=== PATIENT | female | born 1960 | race Caucasian/White ===

== ENCOUNTER 2018-02-09 05:40 | Day surgery (SDC) | payer BC ==
[2018-02-08 11:36] LABS: BASOPHILS 0.6 % (0-2); EOSINOPHILS 0 % (0-7); HEMOGLOBIN 14.6 g/dL (12-16); IMMATURE GRANULOCYTES 0.1 % (0-5); LYMPHOCYTES 29.2 % (15-50); MCH 31.3 pg (26.0-34.0); MCHC 34.8 g/dL (31.0-37.0); MCV 90.1 fL (80.0-100.0); MEAN PLATELET VOLUME 8.8 fL (7.4-10.4); MONOCYTES 5.2 % (2-11); NEUTROPHILS 64.9 % (40-80); PLATELET COUNT 265 10x3/uL (130-400); RBC 4.66 10x6/uL (4.00-5.40); RDW 14.1 % (11.5-14.5); WBC 7.2 10x3/uL (4.8-10.8)
[2018-02-08 11:55] LABS: CALC OSMOLALITY 280 mosm/kg (275-300); CARBON DIOXIDE 31.7 mmol/L (21.0-32.0); CHLORIDE - SERUM 101 mmol/L (98-107); CREATININE - SERUM 0.7 mg/dL (0.6-1.3); GLUCOSE 107 mg/dL (74-106); POTASSIUM - SERUM 4.1 mmol/L (3.5-5.1); SODIUM 141 mmol/L (136-145); UREA NITROGEN 13 mg/dL (7-18); eGFR NON AFRICAN AMERICAN > 90 mL/min (90-120)
[2018-02-08 12:11] LABS: APTT 27.4 SECONDS (22.8-39.4); INR 0.95 (0.85-1.17); PROTIME 12.3 SECONDS (11.6-15.0)
[~2018-02-09] VITALS: Ht 152.4 cm; Wt 69.4 kg
[~2018-02-09 05:40] MED LIST: HYDROCODONE-APA1 TAB PO; KEFLEX500 MG PO; NEOMYC-POLYM-GR10 ML LEFT EYE; NEXIUM20 MG PO; NICODERM C1 PATCH .3 TD; PAXIL20 MG PO
[2018-02-09 07:53] VITALS: Ht 152.4 cm; Wt 69.4 kg
[2018-02-09] MEDS ORDERED: OMEGA-3100 MG PO (08:28)
[2018-02-09] MEDS ORDERED: LODINE400 MG PO (08:28)
[2018-02-09] MEDS ORDERED: COZAAR50 MG PO (08:28)
[2018-02-09] MEDS ORDERED: SYMBICORT 16010.2 GM INH (08:29)
[2018-02-09] MEDS ORDERED: ZYLOPRIM300 MG PO (08:29)
== END 2018-02-09 13:55 | disposition home or self-care (01) ==
LOC: D.OPS 05:40 → D.PAN 07:00 → D.OPS 08:00
PROVIDERS: Anesthesiology
DX: R91.8 Other nonspecific abnormal finding of lung field (principal)

== ENCOUNTER → 2018-05-06 14:00 | Outpatient (CLI) | payer BC ==
[2018-02-09 07:53] VITALS: BMI 29.9
[~2018-05-06 14:00] MED LIST changes: +COZAAR50 MG PO; +LODINE400 MG PO; +OMEGA-3100 MG PO; +SYMBICORT 16010.2 GM INH; +ZYLOPRIM300 MG PO
== END | disposition home or self-care (01) ==
LOC: D.RAD 14:00
DX: R13.19 Other dysphagia (principal)

== ENCOUNTER → 2018-11-16 11:02 | Outpatient (CLI) | payer BC ==
[2018-02-09 07:53] VITALS: BMI 29.9
== END | disposition home or self-care (01) ==
LOC: D.US 11:02
PROVIDERS: ATTEND Family Medicine
DX: M79.629 Pain in unspecified upper arm (principal)